=== PATIENT | female | born 2000 | race Caucasian/White ===

== ENCOUNTER 2022-11-02 05:29 | Inpatient (IN) | payer BC ==
[~2022-11-02 05:29] MED LIST: Acetaminophen 500 MG TAB PO PRN; Butorphanol Tartrate 1 MG/ML VIAL SLOW IVP PRN; Carboprost 250 MCG/ML AMP IM PRN; Diphenoxylate HCl/Atropine Tablet PO PRN; HYDROcodone/Acetaminophen 5/325 mg Tablet PO PRN; Ibuprofen 800 MG TAB PO PRN; Lidocaine 1% (PF) 30 ML VIAL SC PRN; Misoprostol 200 MCG TAB PR PRN; NS w/ Oxytocin 30 units 500 ML IV SCH; Ondansetron PF 4 MG/2 ML Vial IVP PRN; Promethazine HCl 25 MG/ML VIAL IM PRN; Tranexamic Acid 1,000 MG in Sodium Chloride 0.9% 250 ML 250 ML IVPB PRN; hydrALAZINE 20 MG/ML VIAL SLOW IVP PRN
[2022-11-02] MEDS: Lactated Ringer's 1,000 ML IV SCH (06:15)
[2022-11-02 06:22] VITALS: BMI 30.9
[2022-11-02 07:37] LABS: Hemoglobin 11.9 g/dL (12.0-15.5); Mean Corpuscular HGB CONC 33.6 g/dL (32.0-36.0); Mean Corpuscular Hemoglobin 30.4 pg (27.0-33.0); Mean Corpuscular Volume 90.3 fl (81.6-98.3); Mean Platelet Volume 12.1 fl (7.4-10.4); Platelet Count 301 10x3/uL (150-450); RBC Distribution Width 13.6 % (11.5-14.5); Red Blood Cell (RBC) Count 3.92 10x6/uL (3.90-5.03)
[2022-11-02] MEDS ORDERED: Bupivacaine 0.25% HCL 30 ML VIAL ONE (08:00)
[2022-11-02 08:06] LABS: SARS-CoV-2 NAA Rapid Test Not Detected (NotDetected)
[2022-11-02 08:30] LABS: HBSAg Index 0.13 S/CO (0-0.99); Hep B Surf Ag Non-Reactive S/CO (NonReactive)
[2022-11-02 08:31] LABS: Syphilis Antibody Nonreactive (Nonreactive); Syphilis Antibody Index 0.04 S/CO (<1.00 Non-Reactive)
[2022-11-02] MEDS ORDERED: Fentanyl 2 mcg/Bup 0.1% Cadd 100 ML ONE ×2 (10:13→18:34)
[2022-11-02] MEDS ORDERED: Acetaminophen 325 MG TAB PO PRN (11:18)
[2022-11-02] MEDS ORDERED: Lactated Ringer's 500 ML IV PRN (11:18)
[2022-11-02] MEDS ORDERED: diphenhydrAMINE 50 MG/ML VIAL IVP PRN (11:18)
[2022-11-02] MEDS ORDERED: Naloxone HCl 0.4 mg/ml Vial IVP PRN ×2 (11:18)
[2022-11-02] MEDS ORDERED: Promethazine HCl 25 MG/ML VIAL IM PRN ×2 (11:18→21:28)
[2022-11-02] MEDS ORDERED: Moisturizing Cream (Eucerin) 113 GM JAR TOP PRN (11:18)
[2022-11-02] MEDS ORDERED: Ondansetron PF 4 MG/2 ML Vial IVP PRN ×2 (11:18→21:28)
[2022-11-02] MEDS ORDERED: ePHEDrine Sulfate 50 MG/10 ML VIAL SLOW IVP PRN (11:18)
[2022-11-02] MEDS ORDERED: Communication Order-Pharmacy FS SCH (11:30)
[2022-11-02] MEDS ORDERED: Fentanyl 2 mcg/Bupivacaine 0.1% Cassette 100 ML EPIDURAL SCH (11:30)
[2022-11-02] MEDS ORDERED: Benzocaine-Menthol 82.5 ML CAN TOP PRN (21:28)
[2022-11-02] MEDS ORDERED: Boostrix 0.5 ML (Tdap) VIAL (>/=7 yrs of age) IM ONE (21:28)
[2022-11-02] MEDS ORDERED: hydrALAZINE 20 MG/ML VIAL SLOW IVP PRN (21:28)
[2022-11-02] MEDS ORDERED: NS w/ Oxytocin 30 units 500 ML IV SCH (21:28)
[2022-11-02] MEDS ORDERED: Bisacodyl 10 MG SUPP PR PRN (21:28)
[2022-11-02] MEDS ORDERED: Preparation H Ointment 28 GM TUBE PR PRN (21:28)
[2022-11-02] MEDS ORDERED: Measles/Mumps/Rubella 10 MCG/0.5 ML VIAL SC ONE (21:28)
[2022-11-02] MEDS ORDERED: HYDROcodone/Acetaminophen 5/325 mg Tablet PO PRN ×2 (21:28)
[2022-11-02] MEDS ORDERED: Milk Of Magnesia 30 ML UDCUP PO PRN (21:28)
[2022-11-02] MEDS ORDERED: diphenhydrAMINE 25 MG CAP PO PRN (21:28)
[2022-11-02] MEDS ORDERED: Zolpidem Tartrate 5 MG TAB PO PRN (21:28)
[2022-11-02] MEDS ORDERED: Varicella virus, LIVE 0.5 ML VIAL SC ONE (21:28)
[2022-11-02] MEDS ORDERED: Misoprostol 200 MCG TAB VAG PRN (21:28)
[2022-11-02] MEDS ORDERED: Lanolin Ointment 7 GM TUBE TOP PRN (21:28)
[2022-11-02] MEDS ORDERED: Labetalol HCl 100 MG TAB PO SCH (22:00)
[2022-11-02] MEDS ORDERED: Docusate 100 MG CAP PO SCH (22:15)
[2022-11-03] MEDS: Lactated Ringer's 1,000 ML IV SCH (00:03)
[2022-11-03] MEDS: Ibuprofen 800 MG TAB PO SCH ×3 (00:24→17:42)
[2022-11-03 04:49] LABS: Hemoglobin 10.7 g/dL (12.0-15.5); Mean Corpuscular HGB CONC 32.6 g/dL (32.0-36.0); Mean Corpuscular Hemoglobin 30.1 pg (27.0-33.0); Mean Corpuscular Volume 92.1 fl (81.6-98.3); Mean Platelet Volume 11.4 fl (7.4-10.4); Platelet Count 257 10x3/uL (150-450); RBC Distribution Width 13.3 % (11.5-14.5); Red Blood Cell (RBC) Count 3.56 10x6/uL (3.90-5.03); White Blood Cell (WBC) Count 12.7 10x3/uL (3.5-10.5)
[2022-11-03] MEDS: Prenatal Vitamin 1 TAB PO SCH (08:53)
[2022-11-03] MEDS: Docusate 100 MG CAP PO SCH ×2 (08:53→21:58)
[2022-11-03] MEDS: Labetalol HCl 100 MG TAB PO SCH ×2 (08:55→21:58)
[2022-11-03] MEDS: Ferrous Sulfate 325 MG TAB PO SCH ×2 (08:57→17:43)
[2022-11-04] MEDS: Ibuprofen 800 MG TAB PO SCH (05:03)
[2022-11-04] MEDS ORDERED: Ibuprofen 800 MG TAB PO SCH (06:00)
[2022-11-04] MEDS: Ferrous Sulfate 325 MG TAB PO SCH (08:52)
[2022-11-04] MEDS: Docusate 100 MG CAP PO SCH (08:54)
[2022-11-04] MEDS: Prenatal Vitamin 1 TAB PO SCH (08:54)
[2022-11-04] MEDS: Labetalol HCl 100 MG TAB PO SCH (08:54)
[2022-11-04 12:37] VITALS: BP 137/83; TEMP 98.4
== END 2022-11-04 13:05 | disposition home or self-care (01) | DRG 807 ==
LOC: CSHLD 05:29 → CSHPP 23:15
PROVIDERS: ADMIT Obstetrics & Gynecology; ATTEND Obstetrics & Gynecology
PROC: 10E0XZZ Delivery of Products of Conception, External Approach (ICD-10-PCS; principal; 2022-11-02)
DX: O13.4 Gestational [pregnancy-induced] hypertension without significant proteinuria, complicating childbirth (principal); Z37.0 Single live birth; Z3A.37 37 weeks gestation of pregnancy; O71.82 Other specified trauma to perineum and vulva; Z79.899 Other long term (current) drug therapy; Z20.822 Contact with and (suspected) exposure to COVID-19
CPT/HCPCS: 36415; 51702; 85027; 86780; 86850; 86900; 86901; 87340; J2590; J7120; S0020; U0002